=== PATIENT | female | born 1990 | race Caucasian/White ===

== ENCOUNTER 2018-08-08 14:13 | Emergency (ER) | payer MEDICAID ==
[~2018-08-08] VITALS: Wt 68.1 kg
[~2018-08-08 14:13] MED LIST: CALC600T5 PO; FERR28TA PO; FOLI-49 PO; PREN-46 PO
[2018-08-08 14:20] VITALS: BP 108/55; PULSE 73; RESP 18; Wt 68.1 kg
[2018-08-08] MEDS ORDERED: AZIT250T PO (14:54)
[2018-08-08] MEDS ORDERED: IBUP-1542 PO (14:54)
[2018-08-08] MEDS ORDERED: ACET500C5 PO (14:54)
--- NOTE | 2018-08-08 15:02 | ERD ---
ER Documentation Chief Complaint Chief Complaint COUGH AND CONGESTION FOR THE PAST 2 WKS. SORE THROAT . NO EAR PAIN HPI This is a 28-year-old female patient presents emergency room with complaint of cough and congestion x2 weeks. Patient comes to emergency room today as she developed fever and green sputum last night. Patient does not smoke, no sick contacts no recent travel history of anemia. LMP 07/17/2018. ROS All systems reviewed and are negative except as per history of present illness. Medications Home Meds Active Scripts Azithromycin* (Zithromax*) 250 Mg Tablet, 250 MG PO .ZPACK DIRECTED for BRONCHITIS for 5 Days, #6 TAB TAKE 500 MG (2 TABS) THE FIRST DAY THEN 250 MG (1 TAB) DAYS 2-5 Prov:ALEJANDRO GOSS NP 08/08/18 Ibuprofen* (Motrin*) 600 Mg Tab, 600 MG PO Q6 for PAIN OR FEVER for 10 Days, #30 TAB Prov:ALEJANDRO GOSS NP 08/08/18 Acetaminophen* (Tylophen*) 500 Mg Capsule, 2 CAP PO Q8H PRN for FEVER for 7 Days, #30 CAP Prov:ALEJANDRO GOSS NP 08/08/18 Reported Medications Folic Acid* (Folic Acid*) 1 Mg Tablet, 1 MG PO DAILY 05/07/13 Calcium Carbonate (CALCIUM) 600 Mg Tablet, 600 MG PO DAILY 05/07/13 Ferrous Sulfate (Ferrous Sulfate) 1 Tab Tablet, 1 TAB PO DAILY 05/07/13 Vit #108/Iron/Fa ( ONE TABLET) 1 Each Tablet, 1 EACH PO DAILY, #1 02/16/13 Allergies Allergies: Coded Allergies: No Known Allergy (Unverified , 05/28/13) PMhx/Soc Anemia Medical and Surgical Hx: pt denies Medical Hx, pt denies Surgical Hx History of Surgery: No Hx Neurological Disorder: No Hx Respiratory Disorders: No Hx Cardiac Disorders: No Hx Psychiatric Problems: No Hx Miscellaneous Medical Probl: No Hx Alcohol Use: No Hx Substance Use: No Hx Tobacco Use: No Smoking Status: Never smoker FmHx Family History: No diabetes, No coronary disease, No other Physical Exam Vitals Vital Signs Date Temp Pulse Resp B/P (MAP) Pulse Ox O2 O2 Flow FiO2 Time Delivery Rate 08/08/18 98.8 73 18 108/55 98 14:20 (72) Physical Exam Const: No acute distress Head: Atraumatic, no maxillary or frontal tenderness Eyes: Normal Conjunctiva, PERRL ENT: Normal External Ears, Nose and Mouth. TM clear BL , pharynx pink, moist, no lesions, no exudate, no petechiae, tonsils +1 Neck: Full range of motion. No meningismus. Lymphadenopathy Resp: Diminished to auscultation bilaterally, no wheezing rales or rhonchi Cardio: Regular rate and rhythm, no murmurs Abd: Soft, non tender, non distended. Normal bowel sounds Skin: No petechiae or rashes Back: No midline or flank tenderness Neur: Awake and alert Psych: Normal Mood and Affect Procedures/MDM This is a 28-year-old female patient who presents emergency room with complaint of cough and congestion x2 weeks. ED COURSE: The patient was stable throughout ED course. I kept the patient and/or family informed of laboratory and diagnostic imaging results throughout the ED course. DIAGNOSTIC IMAGING: Not indicated MEDICATIONS GIVEN: Not indicated MDM: ED COURSE: The patient was stable throughout ED course. DIAGNOSTIC IMAGING: not indicated MEDICATIONS GIVEN: None. Ibuprofen and Tylenol administered prior to arrival to ED MDM: At the time of discharge the patient looked well with normal vital signs, normal work of breathing, adequate oxygenation. It was felt that the patient was suffering from a bacterial cause of the patient's bronchitis and therefore the appropriate antibiotic was prescribed. Low suspicion for pneumonia, malignancy, sepsis, PE, pneumothorax, FB aspiratin, or COPD. DISPOSITION: The patient has been discharge home to follow-up with community physician. Prescriptions for antipyretic and antibiotic provided. Departure Diagnosis: Primary Impression: Bronchitis Condition: Stable Patient Instructions: Bronchitis, Antiobiotic Treatment (Adult) Referrals: [facility] YOU HAVE RECEIVED A MEDICAL SCREENING EXAM AND THE RESULTS INDICATE THAT YOU DO NOT HAVE A CONDITION THAT REQUIRES URGENT TREATMENT IN THE EMERGENCY DEPARTMENT. FURTHER EVALUATION AND TREATMENT OF YOUR CONDITION CAN WAIT UNTIL YOU ARE SEEN IN YOUR DOCTORS OFFICE WITHIN THE NEXT 1-2 DAYS. IT IS YOUR RESPONSIBILITY TO MAKE AN APPOINTMENT FOR FOLOW-UP CARE. IF YOU HAVE A PRIMARY DOCTOR --you should call your primary doctor and schedule an appointment IF YOU DO NOT HAVE A PRIMARY DOCTOR YOU CAN CALL OUR PHYSICIAN REFERRAL HOTLINE AT IF YOU CAN NOT AFFORD TO SEE A PHYSICIAN YOU CAN CHOSE FROM THE FOLLOWING [facility] [address] [facility]. [facility] [address] [facility] [address] [facility] [address] [facility] [address] [facility]. [facility] [address] Additional Instructions: Thank you very much for allowing us to participate in your care. Your health and safety is our top priority at [facility]. Call your primary care doctor TOMORROW for an appointment during the next 2-4 days and bring all the information and medications prescribed. Have prescriptions filled and follow precisely the directions on the label. If the symptoms get worse and your provider is unavailable, return to the Emergency Department immediately. INCREASE HYDRATION TO 1-2 L/DAY TAKE PROBIOTIC, LIKE ACTIVIA YOGURT DAILY X 14 DAYS COMPLETE ENTIRE COURSE OF ANTIBIOTICS RETURN TO YOUR PRIMARY CARE DOCTOR IN 14 DAYS IF COUGH PERSISTS ALEJANDRO GOSS NP Aug 08, 2018 15:02
== END 2018-08-08 15:05 | disposition home or self-care (01) ==
LOC: FTE 14:13
DX: J40 Bronchitis, not specified as acute or chronic (principal)
CPT/HCPCS: 99283

== ENCOUNTER 2018-08-26 12:34 | Emergency (ER) | payer MEDICAID ==
[~2018-08-26] VITALS: Ht 165.1 cm; Wt 54.6 kg
[~2018-08-26 12:34] MED LIST changes: +ACET500C5 PO; +AZIT250T PO; +IBUP-1542 PO
[2018-08-26 12:37] VITALS: BP 100/55; PULSE 83; RESP 18; Ht 165.1 cm; Wt 54.6 kg
--- NOTE | 2018-08-26 13:28 | ERD ---
ER Documentation Chief Complaint Chief Complaint consistant red vag bleeding 4wks , HPI 28-year-old G2, P1 female with LMP of 07/18/2018 presents with complaint of 1 day of vaginal bleeding. Patient states that she noticed bleeding this morning while she was on the toilet. States he has not been through any pads. In addition states is been having some pelvic cramping as well. Patient denies any dysuria, hematuria, nausea, vomiting, diarrhea, chest pain, lightheadedness, fevers, chills. ROS All systems reviewed and are negative except as per history of present illness. Medications Home Meds Active Scripts Azithromycin* (Zithromax*) 250 Mg Tablet, 250 MG PO .ZPACK DIRECTED for BRONCHITIS for 5 Days, #6 TAB TAKE 500 MG (2 TABS) THE FIRST DAY THEN 250 MG (1 TAB) DAYS 2-5 Prov:ALEJANDRO GOSS NP 08/08/18 Ibuprofen* (Motrin*) 600 Mg Tab, 600 MG PO Q6 for PAIN OR FEVER for 10 Days, #30 TAB Prov:ALEJANDRO GOSS NP 08/08/18 Acetaminophen* (Tylophen*) 500 Mg Capsule, 2 CAP PO Q8H PRN for FEVER for 7 Days, #30 CAP Prov:ALEJANDRO GOSS NP 08/08/18 Reported Medications Folic Acid* (Folic Acid*) 1 Mg Tablet, 1 MG PO DAILY 05/07/13 Calcium Carbonate (CALCIUM) 600 Mg Tablet, 600 MG PO DAILY 05/07/13 Ferrous Sulfate (Ferrous Sulfate) 1 Tab Tablet, 1 TAB PO DAILY 05/07/13 Vit #108/Iron/Fa ( ONE TABLET) 1 Each Tablet, 1 EACH PO DAILY, #1 02/16/13 Allergies Allergies: Coded Allergies: No Known Allergy (Unverified , 05/28/13) PMhx/Soc History of Surgery: No Hx Neurological Disorder: No Hx Respiratory Disorders: No Hx Cardiac Disorders: No Hx Psychiatric Problems: No Hx Miscellaneous Medical Probl: No Hx Alcohol Use: No Hx Substance Use: No Hx Tobacco Use: No FmHx Family History: No diabetes, No coronary disease, No other Physical Exam Vitals Vital Signs Date Temp Pulse Resp B/P (MAP) Pulse Ox O2 O2 Flow FiO2 Time Delivery Rate 08/26/18 99.0 83 18 100/55 100 12:37 (70) Physical Exam Const: No acute distress Head: Atraumatic Eyes: Normal Conjunctiva ENT: Normal External Ears, Nose and Mouth. Neck: Full range of motion. No meningismus. Resp: Clear to auscultation bilaterally Cardio: Regular rate and rhythm, no murmurs Abd: Mild tenderness to palpation in the left lower quadrant without rigidity or guarding. Skin: No petechiae or rashes Back: No midline or flank tenderness Ext: No cyanosis, or edema Neur: Awake and alert Psych: Normal Mood and Affect Result Diagram: 08/26/18 1329 Results 24 hrs Laboratory Tests Test 08/26/18 13:29 White Blood Count 5.5 10^3/ul Red Blood Count 3.68 10^6/ul Hemoglobin 12.0 g/dl Hematocrit 34.6 % Mean Corpuscular Volume 94.0 fl Mean Corpuscular Hemoglobin 32.6 pg Mean Corpuscular Hemoglobin Concent 34.7 g/dl Red Cell Distribution Width 11.9 % Platelet Count 184 10^3/UL Mean Platelet Volume 9.5 fl Immature Granulocytes % 0.400 % Neutrophils % 60.8 % Lymphocytes % 28.7 % Monocytes % 7.2 % Eosinophils % 1.8 % Basophils % 1.1 % Nucleated Red Blood Cells % 0.0 /100WBC Immature Granulocytes # 0.020 10^3/ul Neutrophils # 3.4 10^3/ul Lymphocytes # 1.6 10^3/ul Monocytes # 0.4 10^3/ul Eosinophils # 0.1 10^3/ul Basophils # 0.1 10^3/ul Nucleated Red Blood Cells # 0.0 10^3/ul Urine Color YELLOW Urine Clarity CLEAR Urine pH 7.0 Urine Specific [place] 1.015 Urine Ketones NEGATIVE mg/dL Urine Nitrite NEGATIVE mg/dL Urine Bilirubin NEGATIVE mg/dL Urine Urobilinogen NEGATIVE mg/dL Urine Leukocyte Esterase NEGATIVE Kendrick/ul Urine Microscopic RBC 15 /HPF Urine Microscopic WBC 1 /HPF Urine Squamous Epithelial Cells FEW /HPF Urine Mucus FEW /HPF Urine Hemoglobin 1+ mg/dL Urine Glucose NEGATIVE mg/dL Urine Total Protein NEGATIVE mg/dl Beta HCG, Quantitative 33097.0 mIU/ml Procedures/MDM DIAGNOSTIC IMAGING REPORT Patient: GORGE LACEY : 1990 Age: 28 Sex: F MR #: [id number] DOS: 08/26/18 1309 Ordering MD: ANSHU RUBIO Location: [facility] Room/Bed: PROCEDURE: US OB. CLINICAL INDICATION: Vaginal bleeding TECHNIQUE: Transvaginal views of the pelvis were obtained. COMPARISON: No prior studies are available for comparison. FINDINGS: There is a single intrauterine gestation with a CRL measuring 1.3 cm, corresponding to a gestational age of 6 weeks and 0 days. The heart rate is noted at 106 bpm. There is a hypoechoic fluid collection adjacent to the gestational sac, measuring 2.0 x 1.0 cm, consistent with subchorionic hemorrhage. The right ovary measures 2.3 x 1.4 x 2.1 cm. The left ovary measures 4.1 x 2.5 x 3.0 cm. There is a corpus luteum cyst in the left ovary. There is a small amount of free fluid in the pelvis. RPTAT: AA IMPRESSION: Single live intrauterine with an estimated gestational age of 6 weeks and 0 days, based on ultrasound measurements. bradycardia. Large area of subchorionic hemorrhage. Close follow-up is recommended. .Harmeet Huynh MD, MD Date Time Electronically viewed and signed by .Harmeet Huynh MD, MD on 08/26/2018 14:20 .S/ CC: ANSHU RUBIO [id number] ER Course: CBC, UA, beta quant HCG, type and RH, vaginal US/abdominal US order ed. MDM: CBC, UA, beta quant HCG, type and RH, vaginal US/abdominal US ordered. All results within limits. Ultrasound showed live intrauterine at 6 weeks with larger of subchorionic hemorrhage. At this point I have low suspicion for [ruptured] ectopic based on results of US, hemodynamic stability, physical exam and patient history. I have low suspicion for septic , pyelonephritis, placenta abrupta, appendicitis, cholecystitis, bowel obstruction, ovarian torsion, symptomatic anema, PID, surgical abdomen, hemorrhage, or other life threatening conditions based on patient history, physical exam, and lab/imaging results. At time of discharge patient was hemodynamically stable. Because patient had a subchorionic hemorrhage as well as bradycardia, patient was advised to follow-up with OB in 24 hours. This is all explained report specialist present patient agreed to do so. At this time, patient is stable for discharge and outpatient management. I have instructed the patient to follow-up with his/her primary care physician in 1-2 days. I have discussed with the patient the possibility of needing to see a specialist for further workup and imaging studies if symptoms persist. I have instructed the patient to promptly return to the ER for any new or worsening symptoms including but not limited to increased pain, fever, nausea, vomiting, weakness or LOC. The patient and/or family expressed understanding of and agreement with this plan. All questions were answered. Home care instructions were provided. Communication with patient both during the exam and instructions for discharge were performed with using a report specialist . Patient gave verbal confirmation to th e practitioner, through the report specialist, that they understood everythign that was being said to them. DISCLAIMER: Inadvertent spelling and grammatical errors are likely due to EHR/dictation software use and do not reflect on the overall quality of patient care. Also, please note that the electronic time recorded on this note does not necessarily reflect the actual time of the patient encounter. Departure Diagnosis: Primary Impression: Vaginal bleeding in patient at less than 20 weeks gestation Additional Impressions: Subchorionic hemorrhage in first trimester bradycardia Condition: Stable ANSHU RUBIO Aug 26, 2018 13:28
== END 2018-08-26 15:22 | disposition home or self-care (01) ==
LOC: FTE 12:34
DX: O20.9 Hemorrhage in early pregnancy, unspecified (principal); O36.8310 Maternal care for abnormalities of the fetal heart rate or rhythm, first trimester, not applicable or unspecified; R10.2 Pelvic and perineal pain; Z3A.01 Less than 8 weeks gestation of pregnancy
CPT/HCPCS: 36415; 76801; 76817; 81001; 84702; 85025; 86900; 86901; Z7502

== ENCOUNTER 2018-09-17 23:25 | Emergency (ER) | payer MEDICAID ==
[~2018-09-17] VITALS: Ht 172.7 cm; Wt 55.2 kg
[~2018-09-17 23:25] MED LIST changes: +GLYC1SUP92 PR
[2018-09-17 23:29] VITALS: Ht 172.7 cm; Wt 55.2 kg
[2018-09-17] MEDS ORDERED: ACETAMINOPHEN 325 MG TAB PO STA (23:50)
[2018-09-17] MEDS ORDERED: SOD CHLORIDE 0.9% 1,000 ML IV STA (23:50)
[2018-09-18] MEDS ORDERED: MAGNESIUM CITRATE 300 ML BTL PO ONE
[2018-09-18 02:05] VITALS: BP 96/55; PULSE 71; RESP 18
--- NOTE | 2018-09-18 02:29 | ERD ---
ER Documentation Chief Complaint Chief Complaint VB X 2 DAYS. HPI This patient is a 28-year-old female presenting to the emergency department complaining of intermittent suprapubic pain which began 2 days ago. She is reportedly 8 weeks . She is G2, P1 with last menstrual cycle of 07/18/2018. Her current pain is rated 6/10 in severity. Additional symptoms include vaginal bleeding. She used 2 pads today. She reports some clots seen. She denies any other symptoms at this time. She took no medication for relief of symptoms. ROS All systems reviewed and are negative except as per history of present illness. Medications Home Meds Active Scripts Glycerin* (Glycerin (Adult)*) 1 Each Supp.rect, 1 EACH NC DAILY PRN for CONSTIPATION, #10 SUPP.RECT Prov:ANSHU SAAVEDRA PA-C 09/18/18 Azithromycin* (Zithromax*) 250 Mg Tablet, 250 MG PO .ZPACK DIRECTED for BRONCHITIS for 5 Days, #6 TAB TAKE 500 MG (2 TABS) THE FIRST DAY THEN 250 MG (1 TAB) DAYS 2-5 Prov:ALEJANDRO GOSS NP 08/08/18 Ibuprofen* (Motrin*) 600 Mg Tab, 600 MG PO Q6 for PAIN OR FEVER for 10 Days, #30 TAB Prov:ALEJANDRO GOSS NP 08/08/18 Acetaminophen* (Tylophen*) 500 Mg Capsule, 2 CAP PO Q8H PRN for FEVER for 7 Days, #30 CAP Prov:ALEJANDRO GOSS NP 08/08/18 Reported Medications Folic Acid* (Folic Acid*) 1 Mg Tablet, 1 MG PO DAILY 05/07/13 Calcium Carbonate (CALCIUM) 600 Mg Tablet, 600 MG PO DAILY 05/07/13 Ferrous Sulfate (Ferrous Sulfate) 1 Tab Tablet, 1 TAB PO DAILY 05/07/13 Vit #108/Iron/Fa ( ONE TABLET) 1 Each Tablet, 1 EACH PO DAILY, #1 02/16/13 Allergies Allergies: Coded Allergies: No Known Allergy (Unverified , 05/28/13) PMhx/Soc Medical and Surgical Hx: pt denies Medical Hx History of Surgery: No Hx Neurological Disorder: No Hx Respiratory Disorders: No Hx Cardiac Disorders: No Hx Psychiatric Problems: No Hx Miscellaneous Medical Probl: No Hx Alcohol Use: No Hx Substance Use: No Hx Tobacco Use: No Smoking Status: Never smoker FmHx Family History: No diabetes Physical Exam Vitals Vital Signs Date Temp Pulse Resp B/P (MAP) Pulse Ox O2 O2 Flow FiO2 Time Delivery Rate 09/18/18 98.2 71 18 96/55 (69) 99 02:05 09/17/18 98.7 71 20 103/55 100 23:29 (71) Physical Exam Const: No acute distress Head: Atraumatic Eyes: Normal Conjunctiva ENT: Normal External Ears, Nose and Mouth. Neck: Full range of motion. No meningismus. Resp: Clear to auscultation bilaterally Cardio: Regular rate and rhythm, no murmurs Abd: Soft, non tender, non distended. Normal bowel sounds, tenderness palpation of the suprapubic region. No rebound tenderness or guarding. No McBurney's point tenderness. Skin: No petechiae or rashes Back: No midline or flank tenderness Ext: No cyanosis, or edema Neur: Awake and alert Psych: Normal Mood and Affect Result Diagram: 09/18/18 0001 09/18/18 0001 Results 24 hrs Laboratory Tests Test 09/18/18 00:01 White Blood Count 7.1 10^3/ul Red Blood Count 3.32 10^6/ul Hemoglobin 11.1 g/dl Hematocrit 32.7 % Mean Corpuscular Volume 98.5 fl Mean Corpuscular Hemoglobin 33.4 pg Mean Corpuscular Hemoglobin Concent 33.9 g/dl Red Cell Distribution Width 12.1 % Platelet Count 177 10^3/UL Mean Platelet Volume 9.6 fl Immature Granulocytes % 0.100 % Neutrophils % 63.8 % Lymphocytes % 26.4 % Monocytes % 6.6 % Eosinophils % 2.4 % Basophils % 0.7 % Nucleated Red Blood Cells % 0.0 /100WBC Immature Granulocytes # 0.010 10^3/ul Neutrophils # 4.5 10^3/ul Lymphocytes # 1.9 10^3/ul Monocytes # 0.5 10^3/ul Eosinophils # 0.2 10^3/ul Basophils # 0.1 10^3/ul Nucleated Red Blood Cells # 0.0 10^3/ul Urine Color YELLOW Urine Clarity CLOUDY Urine pH 7.0 Urine Specific [place] 1.020 Urine Ketones NEGATIVE mg/dL Urine Nitrite NEGATIVE mg/dL Urine Bilirubin NEGATIVE mg/dL Urine Urobilinogen NEGATIVE mg/dL Urine Leukocyte Esterase NEGATIVE Kendrick/ul Urine Microscopic RBC 2 /HPF Urine Microscopic WBC 2 /HPF Urine Squamous Epithelial Cells FEW /HPF Urine Amorphous Crystals MODERATE /HPF Urine Hemoglobin 2+ mg/dL Urine Glucose NEGATIVE mg/dL Urine Total Protein NEGATIVE mg/dl Sodium Level 138 mmol/L Potassium Level 3.9 mmol/L Chloride Level 103 mmol/L Carbon Dioxide Level 27 mmol/L Anion Gap 8 Blood Urea Nitrogen 11 mg/dl Creatinine 0.54 mg/dl Est Glomerular Filtrat Rate mL/min > 60 mL/min Glucose Level 93 mg/dl Calcium Level 9.2 mg/dl Total Bilirubin 1.1 mg/dl Direct Bilirubin 0.00 mg/dl Indirect Bilirubin 1.1 mg/dl Aspartate Amino Transf (AST/SGOT) 29 IU/L Alanine Aminotransferase (ALT/SGPT) 18 IU/L Alkaline Phosphatase 55 IU/L Total Protein 7.3 g/dl Albumin 4.2 g/dl Globulin 3.10 g/dl Albumin/Globulin Ratio 1.35 Beta HCG, Quantitative 70095.0 mIU/ml Current Medications Medications Dose Sig/Elkin Start Time Status Last (Trade) Ordered Route PRN Stop Time Admin Dose Reason Admin Sodium 1,000 ml @ Q1H STAT 09/17/18 DC 09/18/18 Chloride 1,000 mls/hr IV 23:50 00:14 09/18/18 00:49 650 mg ONCE STAT 09/17/18 DC 09/18/18 Acetaminophen PO 23:50 00:16 (Tylenol 09/17/18 23:52 Tab) Magnesium 300 ml ONCE ONCE 09/18/18 DC 09/18/18 Citrate PO 00:00 00:39 (Citroma) 09/18/18 00:01 [place] [address] Radiology Main Line: [phone] DIAGNOSTIC IMAGING REPORT Patient: GORGE LACEY : 1990 Age: 28 Sex: F MR #: [id number] DOS: 09/18/18 5360 Ordering MD: ANSHU SAAVEDRA PA-C Location: [facility] Room/Bed: PROCEDURE: US OB. CLINICAL INDICATION: Vaginal bleeding. Clinical estimated gestational age is 8 weeks 6 days with estimated date of delivery 04/24/2019 TECHNIQUE: Transabdominal views of the pelvis are available for review. COMPARISON: US PELVIS 08/26/2018 FINDINGS: Inland-rump length: 2.19 cm heart rate: 157 beats per minute Ultrasound estimated gestational age: 8 weeks 6 days Estimated date of delivery: 04/24/2019 There is a 3.2 x 2.7 x 4.3 cm area of decreased echogenicity adjacent to the gestational sac which could represent a subchorionic bleed. Neither ovary seen. No adnexal mass or free intrapelvic fluid is seen. IMPRESSION: Single live intrauterine with an estimated gestational age of 8 weeks 6 days based on ultrasound measurement. Possible subchorionic bleed noted above. This measures larger than on the previous study. RPTAT: HJES .Tico Russo MD, MD Date Time Electronically viewed and signed by .Tico Russo MD, MD on 09/18/2018 01:09 .S/ CC: ANSHU SAAVEDRA PA-C [id number] Procedures/MDM White blood cell count is 7.1, hemoglobin 11.1. [place] [address]. Patient is Rh positive. Urinalysis showed [no leukocytes, nitrites or glucose]. Pelvic ultrasound shows live intrauterine with heart tones present. Differential includes early , missed or ectopic . No adnexal masses appreciated. Patient presents with pelvic pain and vaginal bleeding. Patient will be discharged home with instructions on the importance of a 2 day follow-up. Signs and symptoms do not suggest endometritis or septic . Patient return sooner for fevers, vomiting, shortness of breath or chest pain. Signs and symptoms do not suggest appendicitis, acute abdomen but patient should recheck as directed. No evidence of life-threatening pathology at time of discharge. Pt/family in agreement with discharge plan/diagnosis. Pt/family advised to return immediately with any new or worsening symptoms. Follow-up with primary care physician within the next 1-2 days. Departure Diagnosis: Primary Impression: Vaginal bleeding in patient at less than 20 weeks ges... Additional Impression: Constipation Condition: Fair Patient Instructions: Treating Constipation, Bleeding During Early Referrals: [facility] Usted se mckenna hecho un examen mdico de control que le indica que no est en michela condicin que requiera tratamiento urgente en el Departamento de Emergencia. Un estudio ms profundo y el tratamiento de gerber condicin pueden esperar sin ningn riesgo hasta que usted sea atendida/o en el consultorio de gerber mdico o michela clnica. Es responsabilidad suya arreglar michela rachelle para el seguimiento del george. MANEJO DE CONDICIONES NO URGENTES EN EL FUTURO 1) Si usted tiene un mdico de atencin primaria: Usted debera llamar a gerber mdico de atencin primaria antes de venir al departamento de emergencia. Despus de las horas de consultorio, gerber doctor o gerber asociado/a est disponible por telfono. El mdico o enfermero de bernarda en el servicio telefnico puede asesorarle por daisha medio para atender el problema, o george contrario se puede programar michela rachelle. 2) Si usted no tiene un mdico de atencin primaria: Llame al mdico o clnica de referencia que aparece abajo onofre las horas de consultorio para hacer michela rachelle para que le vean. CLINICAS: [facility] [phone] [facility] [phone] [facility] [phone] [facility]. [facility] [phone] [place] [phone] [facility]. [phone] [place] [place] [address] [facility] [address] [place] [address] OFFICE FAX , RAHUL [address] [place] [address] [address]. JIM, [address] [address] [place] [address] DR KIRKL[place], [facility] [address] [facility], [address], [place] [address] [address] FRANKS, [facility] [address] [place] [address] [facility] [address] [place] [address] [address] [facility] [address] [address] ESPINAL, ASHLEY [address], [place] [address] DR ROSENBERG, ALONDRA [address] [facility]. [address], [place] [address] DR CRANE, FAROH [address] [place], [place] [id number] Additional Instructions: Specialist:Usted tiene michela condicin mdica que requiere que vernon a un especialista dentro de los prximos 1-2 cui.POR FAVOR,CON GERBER SEGUIMIENTO DE PRIMARIA PHSICIAN refferal. SI USTED NO TIENE UN MDICO GENERAL Y / O USTED NO PUEDE PAGAR lorri a un mdico,los siguientes cash RECURSOS sido suministrado a usted. ES GERBER RESPONSABILIDAD PARA SER VISTOS POR EL ESPECIALISTA: ANSHU GARAY PA-C Sep 18, 2018 02:29
== END 2018-09-18 02:06 | disposition home or self-care (01) ==
LOC: FTE 23:25
DX: O20.9 Hemorrhage in early pregnancy, unspecified (principal); O99.611 Diseases of the digestive system complicating pregnancy, first trimester; K59.00 Constipation, unspecified; Z3A.08 8 weeks gestation of pregnancy
CPT/HCPCS: 36415; 76801; 80053; 81001; 84702; 85025; J7030; Z7502; Z7610